=== PATIENT | male | born 1955 | race Caucasian/White ===

== ENCOUNTER 2017-09-18 08:53 | Inpatient (IN) | payer MEDICAID, OTHER ==
[~2017-09-18] VITALS: Ht 175.3 cm; Wt 134.3 kg
[~2017-09-18 08:53] MED LIST: ASPI-1182 PO; BENA10TA3 PO; CARV3.1231 PO; GABA-531 PO; HYDR-3971 PO; HYDR12.530 PO; PRED10TA3 PO; SIMV20TA6 PO
[2017-09-18] MEDS ORDERED: ASPIRIN 325 MG TABLET PO ONE (10:00)
[2017-09-18 10:34] LABS: BASOPHILS % (AUTO) 0.6 % (0.0-2.0); EOSINOPHILS % (AUTO) 3.3 % (1.0-6.0); HEMATOCRIT 39.8 % (41-53); HEMOGLOBIN 13.8 g/dL (13.5-17.5); LYMPHOCYTES # (AUTO) 1.2 K/uL (1.0-4.8); LYMPHOCYTES % (AUTO) 20.9 % (22.0-44.0); MEAN CORPUSCULAR HEMOGLOBIN 31.2 pg (26.0-34.0); MEAN CORPUSCULAR HGB CONC 34.7 G/dL (31.0-37.0); MEAN CORPUSCULAR VOLUME 90 fL (80-100); MONOCYTES # (AUTO) 0.6 K/uL (0.1-1.0); MONOCYTES % (AUTO) 10.3 % (2.0-9.0); NEUTROPHILS # (AUTO) 3.7 K/uL (1.8-7.7); NEUTROPHILS % (AUTO) 64.9 % (40.0-70.0); PLATELET COUNT (AUTO) 156 K/uL (150-450); RED BLOOD CELL COUNT(AUTO) 4.43 MIL/uL (4.50-5.90); RED CELL DISTRIBUTION WIDTH 13.6 % (11.5-14.5)
[2017-09-18 10:42] LABS: PROTHROMBIN TIME 10.4 SEC (9.4-11.6)
[2017-09-18] MEDS ORDERED: ACETAMINOPHEN 325 MG TABLET PO ONE (10:45)
[2017-09-18 10:53] LABS: APPEARANCE,URINE CLEAR (CLEAR); BILIRUBIN,URINE NEGATIVE (NEGATIVE); GLUCOSE, URINE (UA) NEGATIVE (NEGATIVE); KETONES,URINE NEGATIVE (NEGATIVE); LEUKOCYTE ESTERASE ,URINE NEGATIVE (NEGATIVE); NITRATE,URINE NEGATIVE (NEGATIVE); OCCULT BLOOD,URINE NEGATIVE (NEGATIVE); PH,URINE 6.5 (5.0-8.0); PROTEIN,URINE NEGATIVE (NEGATIVE); UROBILINOGEN,URINE 0.2 mg/dL (<=1.0)
[2017-09-18 10:55] LABS: B-TYPE NATRIURETIC PEPTIDE 55 pg/mL (0-100)
[2017-09-18 10:57] LABS: ANION GAP 6 mmol/L (8-16); CALCIUM, TOTAL 8.5 mg/dL (8.8-10.5); CARBON DIOXIDE 30 mmol/L (22-29); CHLORIDE 104 mmol/L (98-107); CREATININE 0.83 mg/dL (0.60-1.30); GLOMERULAR FILTR. RATE CALC > 60 mL/min (>60); GLUCOSE,RANDOM 94 mg/dL (70-110); POTASSIUM 4.1 mmol/L (3.5-5.1); SODIUM SERUM 140 mmol/L (136-145); UREA NITROGEN, BLOOD 10 mg/dL (7-18)
[2017-09-18 11:10] LABS: ALANINE AMINOTRANSFERASE 31 U/L (12-78); ALBUMIN 3.7 g/dL (3.4-5.0); ALKALINE PHOSPHATASE 64 U/L (46-116); ASPARTATE AMINOTRANSFERASE 18 U/L (15-37); BILIRUBIN,TOTAL 0.7 mg/dL (0.1-1.0); CREATINE KINASE MB 0.6 ng/mL (0-5); CREATINE KINASE, TOTAL 79 U/L (39-308); TOTAL PROTEIN, SERUM 6.8 g/dL (6.4-8.2)
[2017-09-18] MEDS ORDERED: ONDANSETRON HCL 4 MG/2 ML VIAL IVP PRN ×2 (11:30→13:45)
[2017-09-18] MEDS ORDERED: ACETAMINOPHEN 325 MG TABLET PO PRN (11:30)
[2017-09-18] MEDS ORDERED: 0.9% SODIUM CHLORIDE 10 ML SYRINGE IVP PRN (11:30)
[2017-09-18] MEDS ORDERED: MAGNESIUM HYDROXIDE SUSPENSION 30 ML UDCUP PO PRN (13:45)
[2017-09-18] MEDS ORDERED: OxyCODONE HCL/ACETAMINOPHEN 5-325 MG TABLET PO PRN (13:45)
[2017-09-18] MEDS ORDERED: BISACODYL 10 MG RECTAL RECTAL SUPPOSITORY PR PRN (13:45)
[2017-09-18] MEDS ORDERED: MORPHINE SULFATE 2 MG/ML SYRINGE IVP PRN (13:45)
[2017-09-18 13:54] VITALS: BP 104/70
[2017-09-18] MEDS: HYDROCODONE/ACETAMINOPHEN 10-325 MG TABLET PO PRN ×2 (14:46→19:01)
[2017-09-18 15:10] VITALS: BP 113/78
[2017-09-18] MEDS ORDERED: PNEUMOCOCCAL VACCINE POLYVALENT 0.5 ML VIAL [PPSV23] IM ONE (15:45)
[2017-09-18] MEDS ORDERED: INFLUENZA VIRUS VACCINE QVS 2017-18 (3YR+)/PF 60 MCG/0.5 ML SYRINGE IM ONE (15:45)
[2017-09-18] MEDS ORDERED: BUTALBITAL/ACETAMINOPHEN/CAFFEINE 50-325-40 MG TABLET PO PRN (18:00)
[2017-09-18] MEDS: HEPARIN SODIUM,PORCINE 5,000 UNITS/ML VIAL SQ SCH (18:15)
[2017-09-18 20:07] VITALS: BP 112/71
[2017-09-18] MEDS: ACETAMINOPHEN 325 MG TABLET PO PRN (20:13)
[2017-09-18] MEDS: CARVEDILOL 3.125 MG TABLET PO SCH (21:00)
[2017-09-18] MEDS: SIMVASTATIN 20 MG TABLET PO SCH (21:00)
[2017-09-18] MEDS: GABAPENTIN 300 MG CAPSULE PO SCH (21:00)
[2017-09-18] MEDS: OxyCODONE HCL 10 MG IR TABLET PO PRN (23:15)
[2017-09-19] VITALS (9 sets, daily range): BP systolic 96–140; BP diastolic 64–82
[2017-09-19] MEDS: HEPARIN SODIUM,PORCINE 5,000 UNITS/ML VIAL SQ SCH ×4 (00:35→21:08)
[2017-09-19] MEDS: ACETAMINOPHEN 325 MG TABLET PO PRN (02:09)
[2017-09-19] MEDS: OxyCODONE HCL 10 MG IR TABLET PO PRN ×4 (04:34→21:04)
[2017-09-19 06:37] LABS: BASOPHILS % (AUTO) 0.5 % (0.0-2.0); EOSINOPHILS % (AUTO) 3.7 % (1.0-6.0); HEMATOCRIT 38.8 % (41-53); HEMOGLOBIN 13.3 g/dL (13.5-17.5); LYMPHOCYTES # (AUTO) 1.7 K/uL (1.0-4.8); LYMPHOCYTES % (AUTO) 35.1 % (22.0-44.0); MEAN CORPUSCULAR HGB CONC 34.4 G/dL (31.0-37.0); MEAN CORPUSCULAR VOLUME 90 fL (80-100); MONOCYTES # (AUTO) 0.5 K/uL (0.1-1.0); MONOCYTES % (AUTO) 10.1 % (2.0-9.0); NEUTROPHILS # (AUTO) 2.5 K/uL (1.8-7.7); NEUTROPHILS % (AUTO) 50.6 % (40.0-70.0); PLATELET COUNT (AUTO) 137 K/uL (150-450); RED BLOOD CELL COUNT(AUTO) 4.29 MIL/uL (4.50-5.90); RED CELL DISTRIBUTION WIDTH 13.4 % (11.5-14.5)
[2017-09-19 07:07] LABS: ALANINE AMINOTRANSFERASE 25 U/L (12-78); ALBUMIN 3.5 g/dL (3.4-5.0); ALKALINE PHOSPHATASE 62 U/L (46-116); ANION GAP 6 mmol/L (8-16); ASPARTATE AMINOTRANSFERASE 16 U/L (15-37); BILIRUBIN,TOTAL 0.6 mg/dL (0.1-1.0); CALCIUM, TOTAL 8.2 mg/dL (8.8-10.5); CARBON DIOXIDE 29 mmol/L (22-29); CHLORIDE 105 mmol/L (98-107); CHOL/HDL RATIO 3.3 (4.2-7.3); CHOLESTEROL 112 mg/dL (131-200); CREATININE 0.87 mg/dL (0.60-1.30); GLOMERULAR FILTR. RATE CALC > 60 mL/min (>60); GLUCOSE,RANDOM 94 mg/dL (70-110); HDL CHOLESTEROL 34 mg/dL (40-60); LDL CHOL (CALC.) 61 mg/dL (0-130); POTASSIUM 4.1 mmol/L (3.5-5.1); SODIUM SERUM 140 mmol/L (136-145); TOTAL PROTEIN, SERUM 6.4 g/dL (6.4-8.2); TRIGLYCERIDES 84 mg/dL (15-150); UREA NITROGEN, BLOOD 12 mg/dL (7-18)
[2017-09-19] MEDS ORDERED: SODIUM BICARBONATE 50 MEQ/50 ML VIAL ONE (08:29)
[2017-09-19] MEDS ORDERED: IOHEXOL 300 MG/ML 150 ML VIAL ONE (08:29)
[2017-09-19] MEDS ORDERED: HEPARIN SODIUM 1000 UNITS/NS 1,000 ML ONE (08:29)
[2017-09-19] MEDS ORDERED: LIDOCAINE HCL/PF 1% 30 ML VIAL ONE (08:29)
[2017-09-19] MEDS ORDERED: FentaNYL CITRATE-PF 100 MCG/2 ML VIAL ONE (09:32)
[2017-09-19] MEDS ORDERED: MIDAZOLAM HCL 2 MG/2 ML VIAL ONE (09:32)
[2017-09-19] MEDS ORDERED: HEPARIN SODIUM 2,000 UNITS in HEPARIN SODIUM 1000 UNITS/NS 1,000 ML IARTER ONE (09:48)
[2017-09-19] MEDS ORDERED: SODIUM CHLORIDE 0.9% 500 ML IV ONE (09:48)
[2017-09-19] MEDS ORDERED: LIDOCAINE 1% 30 ML/SOD BICARB 8.4% 4 ML SQ ONE (10:00)
[2017-09-19] MEDS ORDERED: IOHEXOL 300 MG/ML 150 ML VIAL IARTER ONE (10:00)
[2017-09-19] MEDS ORDERED: MIDAZOLAM HCL 2 MG/2 ML VIAL IVP ONE (10:00)
[2017-09-19] MEDS ORDERED: FentaNYL CITRATE-PF 100 MCG/2 ML VIAL IVP ONE (10:00)
[2017-09-19] MEDS: ASPIRIN 81 MG EC TABLET PO SCH (11:14)
[2017-09-19] MEDS: BENAZEPRIL HCL 10 MG TABLET PO SCH (11:15)
[2017-09-19] MEDS: GABAPENTIN 300 MG CAPSULE PO SCH ×3 (11:15→21:04)
[2017-09-19] MEDS: CARVEDILOL 3.125 MG TABLET PO SCH ×2 (11:18→21:04)
[2017-09-19] MEDS ORDERED: PERFLUTREN PROTEIN-A MICROSPHERES 0.22 MG/ML 3 ML VIAL IVP ONE ×2 (12:00→13:40)
[2017-09-19] MEDS ORDERED: 0.9% SODIUM CHLORIDE 10 ML SYRINGE IVP ONE (12:18)
[2017-09-19] MEDS: SIMVASTATIN 20 MG TABLET PO SCH (21:04)
[2017-09-20] MEDS: OxyCODONE HCL 10 MG IR TABLET PO PRN ×2 (01:04→07:27)
[2017-09-20] MEDS: ACETAMINOPHEN 325 MG TABLET PO PRN ×2 (04:07→11:26)
[2017-09-20 04:15] VITALS: BP 102/53
[2017-09-20 06:54] LABS: BASOPHILS % (AUTO) 0.4 % (0.0-2.0); EOSINOPHILS % (AUTO) 2.1 % (1.0-6.0); HEMOGLOBIN 12.9 g/dL (13.5-17.5); LYMPHOCYTES % (AUTO) 13.4 % (22.0-44.0); MEAN CORPUSCULAR HEMOGLOBIN 31.4 pg (26.0-34.0); MEAN CORPUSCULAR HGB CONC 34.8 G/dL (31.0-37.0); MEAN CORPUSCULAR VOLUME 90 fL (80-100); MONOCYTES # (AUTO) 0.7 K/uL (0.1-1.0); MONOCYTES % (AUTO) 9.5 % (2.0-9.0); NEUTROPHILS # (AUTO) 5.8 K/uL (1.8-7.7); NEUTROPHILS % (AUTO) 74.6 % (40.0-70.0); PLATELET COUNT (AUTO) 160 K/uL (150-450); RED CELL DISTRIBUTION WIDTH 13.8 % (11.5-14.5)
[2017-09-20 07:31] LABS: ALANINE AMINOTRANSFERASE 24 U/L (12-78); ALBUMIN 3.5 g/dL (3.4-5.0); ALKALINE PHOSPHATASE 57 U/L (46-116); ANION GAP 7 mmol/L (8-16); ASPARTATE AMINOTRANSFERASE 16 U/L (15-37); BILIRUBIN,TOTAL 0.7 mg/dL (0.1-1.0); CALCIUM, TOTAL 8.1 mg/dL (8.8-10.5); CARBON DIOXIDE 27 mmol/L (22-29); CHLORIDE 100 mmol/L (98-107); CREATININE 0.96 mg/dL (0.60-1.30); GLOMERULAR FILTR. RATE CALC > 60 mL/min (>60); GLUCOSE,RANDOM 131 mg/dL (70-110); POTASSIUM 4.2 mmol/L (3.5-5.1); SODIUM SERUM 134 mmol/L (136-145); TOTAL PROTEIN, SERUM 6.4 g/dL (6.4-8.2); UREA NITROGEN, BLOOD 19 mg/dL (7-18)
[2017-09-20 07:51] VITALS: BP 114/73
[2017-09-20] MEDS: BENAZEPRIL HCL 10 MG TABLET PO SCH (08:14)
[2017-09-20] MEDS: HEPARIN SODIUM,PORCINE 5,000 UNITS/ML VIAL SQ SCH (08:14)
[2017-09-20] MEDS: ASPIRIN 81 MG EC TABLET PO SCH (08:14)
[2017-09-20] MEDS: GABAPENTIN 300 MG CAPSULE PO SCH (08:14)
[2017-09-20] MEDS: CARVEDILOL 3.125 MG TABLET PO SCH (08:15)
[2017-09-20 11:38] VITALS: BP 115/64
[2017-09-20] MEDS ORDERED: OXYC5TAB3 PO (13:14)
[2017-09-21 15:09] LABS: GLUCOMETER DEV NAME(LOC) 5S 2N; GLUCOSE,POINT OF CARE 89 MG/DL (70-110)
== END 2017-09-20 14:45 | disposition home or self-care (01) | DRG 191 ==
LOC: EMS 08:55 → 5N 11:54
PROVIDERS: ADMIT Internal Medicine; ATTEND Internal Medicine
PROC: 4A023N7 Measurement of Cardiac Sampling and Pressure, Left Heart, Percutaneous Approach (ICD-10-PCS; principal; 2017-09-19)
PROC: B2111ZZ Fluoroscopy of Multiple Coronary Arteries using Low Osmolar Contrast (ICD-10-PCS; 2017-09-19)
PROC: B41J1ZZ Fluoroscopy of Other Lower Arteries using Low Osmolar Contrast (ICD-10-PCS; 2017-09-19)
PROC: 3E0234Z Introduction of Serum, Toxoid and Vaccine into Muscle, Percutaneous Approach (ICD-10-PCS; 2017-09-20)
DX: I25.110 Atherosclerotic heart disease of native coronary artery with unstable angina pectoris (principal); I11.0 Hypertensive heart disease with heart failure; I50.9 Heart failure, unspecified; E78.5 Hyperlipidemia, unspecified; E78.00 Pure hypercholesterolemia, unspecified; E66.01 Morbid (severe) obesity due to excess calories; G89.29 Other chronic pain; I35.0 Nonrheumatic aortic (valve) stenosis; Z86.73 Personal history of transient ischemic attack (TIA), and cerebral infarction without residual deficits; Z83.3 Family history of diabetes mellitus; Z82.49 Family history of ischemic heart disease and other diseases of the circulatory system; I25.2 Old myocardial infarction; Z79.899 Other long term (current) drug therapy; Z79.82 Long term (current) use of aspirin; Z79.84 Long term (current) use of oral hypoglycemic drugs; Z68.41 Body mass index [BMI] 40.0-44.9, adult; Z23 Encounter for immunization
CPT/HCPCS: 82962; 83735; 90471; 93005; 93306; C8929; J1644; J2250; J2270; J3010; J3490; Q9967

== ENCOUNTER 2017-09-22 10:57 | Inpatient (IN) | payer OTHER ==
[~2017-09-22] VITALS: Ht 175.3 cm; Wt 133.4 kg
[~2017-09-22 10:57] MED LIST changes: -CARV3.1231 PO; -HYDR-3971 PO; +OXYC5TAB3 PO; -PRED10TA3 PO
[2017-09-22] MEDS ORDERED: ONDANSETRON HCL 4 MG/2 ML VIAL IVP ONE (11:45)
[2017-09-22] MEDS ORDERED: NITROGLYCERIN 2% (1 GM=INCH) PACKET TP ONE (11:45)
[2017-09-22] MEDS ORDERED: MORPHINE SULFATE 10 MG/ML SYRINGE IVP ONE (11:45)
[2017-09-22] MEDS ORDERED: ACETAMINOPHEN 500 MG TABLET PO ONE (11:45)
[2017-09-22] MEDS ORDERED: ASPIRIN 81 MG CHEWABLE TABLET PO ONE (11:45)
[2017-09-22] MEDS ORDERED: MORPHINE SULFATE 4 MG/ML SYRINGE IVP ONE (11:45)
[2017-09-22 12:19] LABS: BASOPHILS % (AUTO) 0.3 % (0.0-2.0); EOSINOPHILS % (AUTO) 0.6 % (1.0-6.0); HEMATOCRIT 41.8 % (41-53); HEMOGLOBIN 14.3 g/dL (13.5-17.5); LYMPHOCYTES # (AUTO) 0.6 K/uL (1.0-4.8); LYMPHOCYTES % (AUTO) 7.1 % (22.0-44.0); MEAN CORPUSCULAR HEMOGLOBIN 31.1 pg (26.0-34.0); MEAN CORPUSCULAR HGB CONC 34.3 G/dL (31.0-37.0); MEAN CORPUSCULAR VOLUME 91 fL (80-100); MONOCYTES # (AUTO) 0.8 K/uL (0.1-1.0); MONOCYTES % (AUTO) 10.5 % (2.0-9.0); NEUTROPHILS # (AUTO) 6.4 K/uL (1.8-7.7); NEUTROPHILS % (AUTO) 81.5 % (40.0-70.0); PLATELET COUNT (AUTO) 146 K/uL (150-450); RED BLOOD CELL COUNT(AUTO) 4.61 MIL/uL (4.50-5.90); RED CELL DISTRIBUTION WIDTH 13.1 % (11.5-14.5)
[2017-09-22 12:31] LABS: ANION GAP 9 mmol/L (8-16); CALCIUM, TOTAL 8.5 mg/dL (8.8-10.5); CARBON DIOXIDE 28 mmol/L (22-29); CHLORIDE 103 mmol/L (98-107); CREATININE 0.98 mg/dL (0.60-1.30); GLOMERULAR FILTR. RATE CALC > 60 mL/min (>60); GLUCOSE,RANDOM 124 mg/dL (70-110); POTASSIUM 3.9 mmol/L (3.5-5.1); SODIUM SERUM 140 mmol/L (136-145); UREA NITROGEN, BLOOD 12 mg/dL (7-18)
[2017-09-22 12:37] LABS: ALANINE AMINOTRANSFERASE 25 U/L (12-78); ALBUMIN 3.7 g/dL (3.4-5.0); ALKALINE PHOSPHATASE 66 U/L (46-116); ASPARTATE AMINOTRANSFERASE 16 U/L (15-37); BILIRUBIN,TOTAL 1.3 mg/dL (0.1-1.0); PROTHROMBIN TIME 10.9 SEC (9.4-11.6); TOTAL PROTEIN, SERUM 7.2 g/dL (6.4-8.2)
[2017-09-22 13:00] LABS: B-TYPE NATRIURETIC PEPTIDE 59 pg/mL (0-100)
[2017-09-22] MEDS ORDERED: SODIUM CHLORIDE 0.9% 1,000 ML IV ONE (13:15)
[2017-09-22] MEDS ORDERED: VANCOMYCIN HCL 1 GM/D5% WATER 200 ML IV ONE ×2 (13:15→17:00)
[2017-09-22 14:54] VITALS: BP 101/61
[2017-09-22] MEDS ORDERED: MAGNESIUM HYDROXIDE SUSPENSION 30 ML UDCUP PO PRN (15:45)
[2017-09-22] MEDS ORDERED: BISACODYL 10 MG RECTAL RECTAL SUPPOSITORY PR PRN (15:45)
[2017-09-22] MEDS ORDERED: ONDANSETRON HCL 4 MG/2 ML VIAL IVP PRN (15:45)
[2017-09-22] MEDS: GABAPENTIN 300 MG CAPSULE PO SCH ×2 (16:00→20:04)
[2017-09-22] MEDS: ACETAMINOPHEN 325 MG TABLET PO PRN ×2 (16:00→20:04)
[2017-09-22] MEDS: HEPARIN SODIUM,PORCINE 5,000 UNITS/ML VIAL SQ SCH ×2 (16:00→23:25)
[2017-09-22] MEDS ORDERED: SODIUM CHLORIDE 0.9% 250 ML IV ONE (17:08)
[2017-09-22 19:48] VITALS: BP 98/70
[2017-09-22] MEDS: DOCUSATE SODIUM 100 MG CAPSULE PO SCH (19:57)
[2017-09-22] MEDS: MORPHINE SULFATE 2 MG/ML SYRINGE IVP PRN (20:04)
[2017-09-22] MEDS: SIMVASTATIN 20 MG TABLET PO SCH (20:04)
[2017-09-22] MEDS: HYDROCODONE/ACETAMINOPHEN 5-325 MG TABLET PO PRN (23:25)
[2017-09-22] MEDS: VANCOMYCIN HCL 1.25 GM in DEXTROSE 5%-WATER 250 ML IV SCH (23:29)
[2017-09-23] MEDS: ACETAMINOPHEN 325 MG TABLET PO PRN ×2 (00:48→23:19)
[2017-09-23 04:43] VITALS: BP 124/73
[2017-09-23] MEDS: HYDROCODONE/ACETAMINOPHEN 5-325 MG TABLET PO PRN ×2 (05:10→12:18)
[2017-09-23 06:01] LABS: BASOPHILS % (AUTO) 0.5 % (0.0-2.0); EOSINOPHILS % (AUTO) 1.2 % (1.0-6.0); HEMATOCRIT 37.1 % (41-53); HEMOGLOBIN 12.9 g/dL (13.5-17.5); LYMPHOCYTES # (AUTO) 0.8 K/uL (1.0-4.8); LYMPHOCYTES % (AUTO) 12.9 % (22.0-44.0); MEAN CORPUSCULAR HEMOGLOBIN 31.4 pg (26.0-34.0); MEAN CORPUSCULAR HGB CONC 34.7 G/dL (31.0-37.0); MEAN CORPUSCULAR VOLUME 90 fL (80-100); MONOCYTES # (AUTO) 0.9 K/uL (0.1-1.0); NEUTROPHILS # (AUTO) 4.3 K/uL (1.8-7.7); NEUTROPHILS % (AUTO) 70.4 % (40.0-70.0); PLATELET COUNT (AUTO) 125 K/uL (150-450); RED CELL DISTRIBUTION WIDTH 13.6 % (11.5-14.5)
[2017-09-23 06:23] LABS: ANION GAP 11 mmol/L (8-16); CARBON DIOXIDE 26 mmol/L (22-29); CHLORIDE 102 mmol/L (98-107); CREATININE 0.95 mg/dL (0.60-1.30); GLOMERULAR FILTR. RATE CALC > 60 mL/min (>60); GLUCOSE,RANDOM 115 mg/dL (70-110); POTASSIUM 4.1 mmol/L (3.5-5.1); SODIUM SERUM 139 mmol/L (136-145); UREA NITROGEN, BLOOD 12 mg/dL (7-18)
[2017-09-23 07:40] VITALS: BP 128/76
[2017-09-23] MEDS: VANCOMYCIN HCL 1.25 GM in DEXTROSE 5%-WATER 250 ML IV SCH ×2 (08:46→16:53)
[2017-09-23] MEDS: MORPHINE SULFATE 2 MG/ML SYRINGE IVP PRN ×2 (08:47→13:28)
[2017-09-23] MEDS: BENAZEPRIL HCL 10 MG TABLET PO SCH (08:47)
[2017-09-23] MEDS: PANTOPRAZOLE SODIUM 40 MG DR TABLET PO SCH (08:47)
[2017-09-23] MEDS: GABAPENTIN 300 MG CAPSULE PO SCH ×3 (08:47→20:49)
[2017-09-23] MEDS: DOCUSATE SODIUM 100 MG CAPSULE PO SCH ×2 (08:47→20:55)
[2017-09-23] MEDS: ASPIRIN 81 MG EC TABLET PO SCH (08:47)
[2017-09-23] MEDS: HYDROCHLOROTHIAZIDE 25 MG TABLET PO SCH (08:47)
[2017-09-23] MEDS: HEPARIN SODIUM,PORCINE 5,000 UNITS/ML VIAL SQ SCH ×2 (08:47→16:52)
[2017-09-23 11:48] VITALS: BP 129/62
[2017-09-23] MEDS: ISOSORBIDE MONONITRATE 30 MG ER TABLET PO SCH (13:58)
[2017-09-23] MEDS: RANOLAZINE 500 MG SR TABLET PO SCH ×2 (13:58→21:00)
[2017-09-23 15:34] VITALS: BP 120/60
[2017-09-23] MEDS: OxyCODONE HCL 10 MG IR TABLET PO SCH ×2 (18:02→20:55)
[2017-09-23 19:29] VITALS: BP 104/44
[2017-09-23] MEDS: SIMVASTATIN 20 MG TABLET PO SCH (20:50)
[2017-09-23 23:50] VITALS: BP 103/83
[2017-09-24] MEDS: HEPARIN SODIUM,PORCINE 5,000 UNITS/ML VIAL SQ SCH ×4 (00:22→23:18)
[2017-09-24] MEDS: VANCOMYCIN HCL 1.25 GM in DEXTROSE 5%-WATER 250 ML IV SCH ×2 (00:22→08:49)
[2017-09-24] MEDS: ZOLPIDEM TARTRATE 5 MG TABLET PO PRN ×2 (01:34→23:21)
[2017-09-24 04:54] VITALS: BP 108/73
[2017-09-24] MEDS: ACETAMINOPHEN 325 MG TABLET PO PRN (05:59)
[2017-09-24 06:19] LABS: BASOPHILS % (AUTO) 0.9 % (0.0-2.0); EOSINOPHILS % (AUTO) 1.9 % (1.0-6.0); HEMOGLOBIN 13.2 g/dL (13.5-17.5); LYMPHOCYTES # (AUTO) 1.9 K/uL (1.0-4.8); LYMPHOCYTES % (AUTO) 17.4 % (22.0-44.0); MEAN CORPUSCULAR HEMOGLOBIN 31.5 pg (26.0-34.0); MEAN CORPUSCULAR HGB CONC 34.7 G/dL (31.0-37.0); MEAN CORPUSCULAR VOLUME 91 fL (80-100); MONOCYTES # (AUTO) 1.9 K/uL (0.1-1.0); MONOCYTES % (AUTO) 17.5 % (2.0-9.0); NEUTROPHILS # (AUTO) 6.7 K/uL (1.8-7.7); NEUTROPHILS % (AUTO) 62.3 % (40.0-70.0); RED BLOOD CELL COUNT(AUTO) 4.18 MIL/uL (4.50-5.90); RED CELL DISTRIBUTION WIDTH 13.4 % (11.5-14.5)
[2017-09-24 06:21] LABS: ALBUMIN 3.5 g/dL (3.4-5.0); BILIRUBIN,TOTAL 0.6 mg/dL (0.1-1.0); CALCIUM, TOTAL 8.6 mg/dL (8.8-10.5); CREATININE 1.23 mg/dL (0.60-1.30); MAGNESIUM 2.1 mg/dL (1.80-2.40); POTASSIUM 4.2 mmol/L (3.5-5.1)
[2017-09-24 06:43] LABS: VANCOMYCIN,RANDOM 27.4 mcg/mL (25.0-50.0)
[2017-09-24 06:54] LABS: PLATELET COUNT (AUTO) 141 K/uL (150-450)
[2017-09-24 07:04] VITALS: BP 103/53
[2017-09-24] MEDS: OxyCODONE HCL 10 MG IR TABLET PO SCH ×3 (08:28→19:52)
[2017-09-24] MEDS: ISOSORBIDE MONONITRATE 30 MG ER TABLET PO SCH (08:29)
[2017-09-24] MEDS: BENAZEPRIL HCL 10 MG TABLET PO SCH (08:29)
[2017-09-24] MEDS: PANTOPRAZOLE SODIUM 40 MG DR TABLET PO SCH (08:29)
[2017-09-24] MEDS: GABAPENTIN 300 MG CAPSULE PO SCH ×3 (08:29→19:53)
[2017-09-24] MEDS: RANOLAZINE 500 MG SR TABLET PO SCH ×2 (08:29→19:53)
[2017-09-24] MEDS: DOCUSATE SODIUM 100 MG CAPSULE PO SCH ×2 (08:29→19:53)
[2017-09-24] MEDS: ASPIRIN 81 MG EC TABLET PO SCH (08:30)
[2017-09-24] MEDS: HYDROCHLOROTHIAZIDE 25 MG TABLET PO SCH (10:04)
[2017-09-24 10:59] VITALS: BP 104/66
[2017-09-24] MEDS: MULTIVITAMINS, THERAPEUTIC TABLET PO SCH (15:11)
[2017-09-24 16:13] VITALS: BP 102/69
[2017-09-24] MEDS: CEPHALEXIN MONOHYDRATE 500 MG CAPSULE PO SCH ×2 (16:27→19:53)
[2017-09-24] MEDS: IBUPROFEN 400 MG TABLET PO SCH ×2 (16:27→23:18)
[2017-09-24 18:50] VITALS: BP 137/49
[2017-09-24] MEDS: SULFAMETHOX/TRIMETH DS 800-160 MG/TABLET PO SCH (19:53)
[2017-09-24] MEDS: SIMVASTATIN 20 MG TABLET PO SCH (19:53)
[2017-09-24 23:31] VITALS: BP 103/69
[2017-09-25 04:15] VITALS: BP 110/68
[2017-09-25] MEDS: ACETAMINOPHEN 325 MG TABLET PO PRN (04:35)
[2017-09-25 05:47] LABS: BASOPHILS % (AUTO) 0.5 % (0.0-2.0); EOSINOPHILS % (AUTO) 2.9 % (1.0-6.0); HEMATOCRIT 36.7 % (41-53); HEMOGLOBIN 12.6 g/dL (13.5-17.5); LYMPHOCYTES # (AUTO) 0.9 K/uL (1.0-4.8); LYMPHOCYTES % (AUTO) 13.4 % (22.0-44.0); MEAN CORPUSCULAR HEMOGLOBIN 31.3 pg (26.0-34.0); MEAN CORPUSCULAR HGB CONC 34.4 G/dL (31.0-37.0); MEAN CORPUSCULAR VOLUME 91 fL (80-100); MONOCYTES % (AUTO) 14.6 % (2.0-9.0); NEUTROPHILS # (AUTO) 4.6 K/uL (1.8-7.7); NEUTROPHILS % (AUTO) 68.6 % (40.0-70.0); PLATELET COUNT (AUTO) 144 K/uL (150-450); RED BLOOD CELL COUNT(AUTO) 4.04 MIL/uL (4.50-5.90); RED CELL DISTRIBUTION WIDTH 13.3 % (11.5-14.5)
[2017-09-25 05:52] LABS: ANION GAP 8 mmol/L (8-16); CALCIUM, TOTAL 8.3 mg/dL (8.8-10.5); CARBON DIOXIDE 30 mmol/L (22-29); CHLORIDE 100 mmol/L (98-107); CREATININE 0.95 mg/dL (0.60-1.30); GLOMERULAR FILTR. RATE CALC > 60 mL/min (>60); GLUCOSE,RANDOM 101 mg/dL (70-110); SODIUM SERUM 138 mmol/L (136-145); UREA NITROGEN, BLOOD 16 mg/dL (7-18)
[2017-09-25 07:31] VITALS: BP 98/47
[2017-09-25 09:13] VITALS: BP 126/75
[2017-09-25] MEDS: GABAPENTIN 300 MG CAPSULE PO SCH (09:15)
[2017-09-25] MEDS: PANTOPRAZOLE SODIUM 40 MG DR TABLET PO SCH (09:16)
[2017-09-25] MEDS: CEPHALEXIN MONOHYDRATE 500 MG CAPSULE PO SCH (09:16)
[2017-09-25] MEDS: BENAZEPRIL HCL 10 MG TABLET PO SCH (09:16)
[2017-09-25] MEDS: MULTIVITAMINS, THERAPEUTIC TABLET PO SCH (09:17)
[2017-09-25] MEDS: DOCUSATE SODIUM 100 MG CAPSULE PO SCH (09:17)
[2017-09-25] MEDS: RANOLAZINE 500 MG SR TABLET PO SCH (09:18)
[2017-09-25] MEDS: IBUPROFEN 400 MG TABLET PO SCH (09:19)
[2017-09-25] MEDS: SULFAMETHOX/TRIMETH DS 800-160 MG/TABLET PO SCH (09:21)
[2017-09-25] MEDS: ISOSORBIDE MONONITRATE 30 MG ER TABLET PO SCH (09:22)
[2017-09-25] MEDS: ASPIRIN 81 MG EC TABLET PO SCH (09:22)
[2017-09-25] MEDS: OxyCODONE HCL 10 MG IR TABLET PO SCH (09:23)
[2017-09-25] MEDS: HYDROCHLOROTHIAZIDE 25 MG TABLET PO SCH (09:26)
[2017-09-25] MEDS: HEPARIN SODIUM,PORCINE 5,000 UNITS/ML VIAL SQ SCH (09:31)
[2017-09-25] MEDS ORDERED: RANO500T3 PO (10:24)
[2017-09-25] MEDS ORDERED: CEPH-582 PO (10:25)
[2017-09-25] MEDS ORDERED: BACTDSB PO (10:25)
[2017-09-25] MEDS ORDERED: ISOS30TA6 PO (10:25)
[2017-09-25] MEDS ORDERED: IBUP-1685 PO (10:26)
== END 2017-09-25 10:45 | disposition home or self-care (01) | DRG 383 ==
LOC: EMS 10:58 → 5S 14:29 → 5N 18:13 → 6N 09-24 18:30
PROVIDERS: ADMIT Internal Medicine; ATTEND Internal Medicine
DX: L03.113 Cellulitis of right upper limb (principal); I11.0 Hypertensive heart disease with heart failure; I50.9 Heart failure, unspecified; I80.9 Phlebitis and thrombophlebitis of unspecified site; E11.9 Type 2 diabetes mellitus without complications; E78.00 Pure hypercholesterolemia, unspecified; E78.5 Hyperlipidemia, unspecified; G89.29 Other chronic pain; I25.10 Atherosclerotic heart disease of native coronary artery without angina pectoris; I25.2 Old myocardial infarction; I35.0 Nonrheumatic aortic (valve) stenosis; Z79.82 Long term (current) use of aspirin; Z79.84 Long term (current) use of oral hypoglycemic drugs; Z86.73 Personal history of transient ischemic attack (TIA), and cerebral infarction without residual deficits
CPT/HCPCS: 83605; 83735; 87040; 87081; 93005; 93971; 96365; 96366; 96375; 99285; J1644; J2270; J2405; J3370; J7030; J7050; J7060

== ENCOUNTER 2017-11-08 12:31 | Emergency (ER) | payer OTHER ==
[~2017-11-08] VITALS: Ht 175.3 cm; Wt 123.2 kg
[~2017-11-08 12:31] MED LIST changes: +BACTDSB PO; +CEPH-582 PO; +IBUP-1685 PO; +ISOS30TA6 PO; +RANO500T3 PO
[2017-11-08] MEDS ORDERED: BLOOD PRESSURE PO (12:40)
[2017-11-08] MEDS ORDERED: KETOROLAC TROMETHAMINE 60 MG/2 ML VIAL IM ONE (14:00)
[2017-11-08 15:43] VITALS: BP 114/85
== END 2017-11-08 15:52 | disposition home or self-care (01) ==
LOC: EMS 12:32
DX: I82.611 Acute embolism and thrombosis of superficial veins of right upper extremity (principal); R06.02 Shortness of breath; E78.00 Pure hypercholesterolemia, unspecified; I10 Essential (primary) hypertension; I25.2 Old myocardial infarction; F17.210 Nicotine dependence, cigarettes, uncomplicated; Z86.73 Personal history of transient ischemic attack (TIA), and cerebral infarction without residual deficits
CPT/HCPCS: 96372; 99283; J1885

== ENCOUNTER 2017-12-25 21:56 | Emergency (ER) | payer OTHER ==
[~2017-12-25] VITALS: Ht 175.3 cm; Wt 123.0 kg
[~2017-12-25 21:56] MED LIST changes: +BLOOD PRESSURE PO
[2017-12-25] MEDS ORDERED: NITR.4 SL (22:07)
[2017-12-25 22:25] LABS: BASOPHILS % (AUTO) 0.5 % (0.0-2.0); HEMATOCRIT 37.4 % (41-53); HEMOGLOBIN 12.7 g/dL (13.5-17.5); LYMPHOCYTES # (AUTO) 1.7 K/uL (1.0-4.8); LYMPHOCYTES % (AUTO) 23.6 % (22.0-44.0); MEAN CORPUSCULAR HEMOGLOBIN 30.6 pg (26.0-34.0); MEAN CORPUSCULAR VOLUME 90 fL (80-100); MONOCYTES # (AUTO) 0.7 K/uL (0.1-1.0); MONOCYTES % (AUTO) 10.6 % (2.0-9.0); NEUTROPHILS # (AUTO) 4.4 K/uL (1.8-7.7); NEUTROPHILS % (AUTO) 62.3 % (40.0-70.0); PLATELET COUNT (AUTO) 154 K/uL (150-450); RED BLOOD CELL COUNT(AUTO) 4.16 MIL/uL (4.50-5.90); RED CELL DISTRIBUTION WIDTH 13.4 % (11.5-14.5)
[2017-12-25 22:36] LABS: ANION GAP 7 mmol/L (8-16); CALCIUM, TOTAL 8.2 mg/dL (8.8-10.5); CARBON DIOXIDE 28 mmol/L (22-29); CHLORIDE 103 mmol/L (98-107); CREATININE 1.02 mg/dL (0.60-1.30); GLOMERULAR FILTR. RATE CALC > 60 mL/min (>60); GLUCOSE,RANDOM 88 mg/dL (70-110); POTASSIUM 3.7 mmol/L (3.5-5.1); SODIUM SERUM 138 mmol/L (136-145); UREA NITROGEN, BLOOD 15 mg/dL (7-18)
[2017-12-25 22:43] LABS: ALANINE AMINOTRANSFERASE 28 U/L (12-78); ALBUMIN 3.7 g/dL (3.4-5.0); ALKALINE PHOSPHATASE 69 U/L (46-116); ASPARTATE AMINOTRANSFERASE 23 U/L (15-37); BILIRUBIN,TOTAL 0.4 mg/dL (0.1-1.0); TOTAL PROTEIN, SERUM 6.9 g/dL (6.4-8.2)
[2017-12-26] MEDS ORDERED: ONDANSETRON HCL 4 MG/2 ML VIAL IVP ONE (01:15)
[2017-12-26] MEDS ORDERED: ASPIRIN 325 MG EC TABLET PO ONE (01:15)
[2017-12-26] MEDS ORDERED: MORPHINE SULFATE 4 MG/ML SYRINGE IVP ONE ×2 (01:15→05:45)
[2017-12-26] MEDS ORDERED: SODIUM CHLORIDE 0.9% 100 ML ONE (05:14)
[2017-12-26] MEDS ORDERED: IOVERSOL 350 MG/ML 150 ML VIAL ONE (05:15)
[2017-12-26 06:45] VITALS: BP 105/67
== END 2017-12-26 06:54 | disposition home or self-care (01) ==
LOC: EMS 21:57
DX: R07.2 Precordial pain (principal); R06.02 Shortness of breath; R00.2 Palpitations; R42 Dizziness and giddiness; E78.00 Pure hypercholesterolemia, unspecified; I10 Essential (primary) hypertension; I25.2 Old myocardial infarction; F17.210 Nicotine dependence, cigarettes, uncomplicated; F12.90 Cannabis use, unspecified, uncomplicated; Z86.73 Personal history of transient ischemic attack (TIA), and cerebral infarction without residual deficits
CPT/HCPCS: 36415; 71045; 71275; 80053; 84484; 85025; 85379; 93005; 96374; 96375; 96376; 99285; J2270; J2405; J7050; Q9967